=== PATIENT | female | born 1980 | race African-American/Black ===

== ENCOUNTER 2022-07-13 08:27 | Emergency (ER) | payer MEDICAID ==
[~2022-07-13] VITALS: Ht 154.9 cm; Wt 84.6 kg
[2022-07-13 08:56] VITALS: BP 149/108
[2022-07-13] MEDS ORDERED: IBUP800T27 PO (08:58)
[2022-07-13] MEDS ORDERED: CLIN300C8 PO (08:58)
[2022-07-13] MEDS ORDERED: cefTRIAXone SOD 1,000 MG VL IM ONE (09:00)
[2022-07-13] MEDS ORDERED: IBUPROFEN 800 MG TAB PO ONE (09:00)
== END 2022-07-13 09:20 | disposition home or self-care (01) ==
LOC: ER 08:38
DX: K04.7 Periapical abscess without sinus (principal)
CPT/HCPCS: 96372; 99283; J0696